=== PATIENT | female | born 1945 | race African-American/Black ===

== ENCOUNTER → 2020-07-01 | Outpatient (CLI) | payer MEDICARE ==
--- NOTE | 2020-07-01 18:08 | XCELERA REPORT ---
[address] [address] Transthoracic Echocardiogram Report Name: HAILY MURILLO Age: 74 yrs Gender: Female : 1945 Patient Status: Outpatient Patient Location: Study Date: 07/01/2020 01:16 PM History: HTN Height: 60 in Weight: 158 lb BSA: 1.7 m2 Procedure: A complete two-dimensional transthoracic echocardiogram was performed (2D, M-mode, spectral and color flow Doppler). The study was technically difficult with many images being suboptimal in quality. Reason For Study: HTN Previous Evaluation: No previous studies were available. History: HTN. Ordering Physician: JAMESON MCKEON Performed By: Clementina Hernandez Interpretation Summary Left ventricular systolic function is normal. The right ventricle is normal in size and function. There is no mitral regurgitation noted. There is no aortic valve stenosis There is a trace amount of tricuspid regurgitation Doppler findings do not suggest pulmonary hypertension. There is no pericardial effusion. MMode/2D Measurements & Calculations RVDd: 2.3 cm LVIDd: 3.5 cm FS: 26.2 % Ao root diam: 3.0 cm IVSd: 1.0 cm LVIDs: 2.6 cm EDV(Teich): 51.4 ml Ao root area: 7.1 cm2 LVPWd: 1.00 cm ESV(Teich): 24.4 ml EF(Teich): 52.4 % Doppler Measurements & Calculations MV E max william: MV dec slope: Ao V2 max: LV V1 max P.3 cm/sec 294.8 cm/sec2 121.5 cm/sec 3.2 mmHg MV A max william: MV dec time: 0.21 sec Ao max P.9 mmHgLV V1 max: 119.0 cm/sec 88.8 cm/sec MV E/A: 0.52 PA V2 max: PI end-d william: TR max william: 90.7 cm/sec 82.7 cm/sec 234.1 cm/sec PA max P.3 mmHg TR max P.9 mmHg Left Ventricle The left ventricle is normal in size. There is mild concentric left ventricular hypertrophy. Left ventricular systolic function is normal. The Ejection Fraction estimate is 55-60%. Doppler measurements suggest impaired left ventricular relaxation, which is associated with grade I/IV or mild diastolic dysfunction. No regional wall motion abnormalities noted. Right Ventricle The right ventricle is normal in size and function. Atria The right atrium is normal. The left atrium is borderline dilated. Mitral Valve The mitral valve is grossly normal. There is mild mitral annular calcification. There is no evidence of mitral valve prolapse. There is no mitral valve stenosis. There is no mitral regurgitation noted. Aortic Valve The aortic valve is trileaflet. The aortic valve opens well. The aortic valve is normal in structure and function. There is no aortic valve stenosis. No aortic regurgitation is present. Tricuspid Valve The tricuspid valve is normal in structure and function. There is no tricuspid stenosis. There is a trace amount of tricuspid regurgitation. Doppler findings do not suggest pulmonary hypertension. Pulmonic Valve The pulmonic valve is not well visualized. There is no pulmonic valvular stenosis. There is a mild amount of pulmonic regurgitation. Great Vessels The aortic root is normal size. The inferior vena cava was not well visualized. Effusions There is no pericardial effusion. : JAMESON MCKEON Anil
== END ==
LOC: EDSEX 13:00 → SP 13:17
PROVIDERS: ATTEND Internal Medicine
DX: I10 Essential (primary) hypertension (principal); R53.83 Other fatigue; R06.00 Dyspnea, unspecified
CPT/HCPCS: 93306